=== PATIENT | female | born 1970 | race Caucasian/White ===

== ENCOUNTER → 2025-02-15 09:54 | Outpatient (REF) | payer BC, SELFPAY | LOC: EMG 09:54 | PROVIDERS: ATTENDING PHYSICIAN Physician Assistant Surgical; FAMILY PHYSICIAN Nurse Practitioner Family | DX: M25.511 Pain in right shoulder (principal); R20.0 Anesthesia of skin | CPT/HCPCS: 95886; 95909 ==